=== PATIENT | female | born 1960 | race Caucasian/White ===

== ENCOUNTER → 2024-11-07 | Outpatient (CLI) | payer BC ==
--- NOTE | 2024-11-07 13:57 | MM ---
Reason for Exam: Additional evaluation requested from prior study. Last screening mammogram was performed less than 1 month ago. Patient History: Menarche at age 11. First Full-Term at age 19. Left ovary removed at age 31. Right ovary removed at age 31. Hysterectomy at age 31. Postmenopausal. Patient has history of breast feeding. 12/21/1988, Benign Excisional Biopsy on the left side. Risk Values: Sara 5 year model risk: 1.8%. NCI Lifetime model risk: 6.6%. Prior Study Comparison: 12/15/2018 Bilateral MG screening mammo w CAD - 2, Unknown. 12/01/2022 Bilateral MG screening mammo w CAD - 2, Unknown. 10/10/2024 Bilateral MG screening mammo w CAD - 2, Unknown. Tissue Density: Left: The breasts are heterogeneously dense, which may obscure small masses. Findings: Analyzed By CAD. Approximately 8 cm from the nipple upper outer quadrant left breast there is a faint indeterminate cluster of microcalcifications for which tissue diagnosis is recommended. No additional abnormal clusters seen at this time. Overall Assessment: Suspicious, BI-RAD 4 Management: Stereotactic Core Biopsy of the left breast. . Results were given to the patient verbally at the time of exam. Patient should continue monthly self-breast exams. A clinical breast exam by your physician is recommended on an annual basis. This exam should not preclude additional follow-up of suspicious palpable abnormalities. Note on Sara scores and lifetime risk: 1. A Sara score greater than 3% is considered moderate risk. If this is the case, consider specialist referral to assess eligibility for a risk reducing agent. 2. If overall lifetime risk for the development of breast cancer is 20% or higher, the patient may qualify for future screening with alternating mammogram and breast MRI. [facility], , 11/07/2024 1:54 PM. Electronically signed and approved by: Brien Edmond M.D. Radiologis
== END | disposition home or self-care (01) ==
LOC: RADMAMWWP 12:49
PROVIDERS: ATTEND Family Medicine
DX: R92.8 Other abnormal and inconclusive findings on diagnostic imaging of breast (principal); R92.333 Mammographic heterogeneous density, bilateral breasts; Z78.0 Asymptomatic menopausal state
CPT/HCPCS: 77061; 77065

== ENCOUNTER → 2024-11-20 | Day surgery (SDC) | payer BC ==
[~2024-11-20] MED LIST: ALPRAZolam 0.25 MG TAB PO PRN; ALPRAZolam 0.5 MG TAB PO PRN
[2024-11-20 07:42] VITALS: RESP 16
[2024-11-20 08:43] VITALS: BP 146/83; PULSE 74; TEMP 98.1
--- NOTE | 2024-11-24 12:25 | MM ---
Risk Values: Sara 5 year model risk: 1.8%. NCI Lifetime model risk: 6.6%. Prior Study Comparison: 12/01/2022 Bilateral MG screening mammo w CAD - 2, Unknown. 10/10/2024 Bilateral MG screening mammo w CAD - 2, Unknown. 11/07/2024 Left MG 3D diag mammo w/cad LT, [facility]. Pathology Description: Marker Left Behind. Specimen Radiograph. Calcium Found: Yes Approach: Lateral to Medial Needle Type: Eviva Cores: 7 Skin Nicks: 1 Gauge: 9 The procedure of stereotactic guided core biopsy was explained to the patient. Benefits, alternatives, and risks were discussed. An informed consent was then obtained. The shortness pathway for biopsy was chosen. Shortness pathway was lateral to medial approach. A vacuum assisted biopsy gun was used to obtain multiple core samples. The patient tolerated the procedure well without any immediate complication. The patient was kept in the radiology department for short stay after the procedure and then discharged home in stable condition. Targeted calcifications are identified in specimen mammogram. Patient was taken to a dedicated mammography suite for post procedure clip placement verification. Post biopsy mammogram shows the clip to appear in satisfactory position relative to the targeted area of concern on the preprocedure images. No residual calcifications are identified. Impression: SUCCESSFUL, UNCOMPLICATED STEREOTACTIC GUIDED CORE BIOPSY OF AREA OF CONCERN IN THE LEFT BREAST. PATHOLOGY STATUS: Results pending Intermediate index of suspicion noted at time of procedure. [facility], , 11/20/2024 8:58 AM. Pathology Results: Result: High risk, Flat epithelial atypia. Pathology and radiology were reviewed. Findings are concordant. LEFT BREAST, STEREOTACTIC NEEDLE CORE BIOPSY: Focal flat epithelial atypia (FEA) and atypical ductal hyperplasia (ADH) with calcifications in a background of fibrocystic changes. See note. Notes Smooth muscle myosin heavy chain (SMMHC) immunostain performed on block A1 and evaluated with an appropriate positive control highlights a myoepithelial layer surrounding ductal structures within the stroma. The results support the diagnosis of the specimen as benign, with focal FEA and ADH. Bundler material from this case was also reviewed by Dr. Dereje Payton, who agrees with the above diagnosis. Overall Assessment: High risk Management: Surgical Consultation of the left breast. Consider needle localization. Electronically signed and approved by: Ramon Alarcon M.D.
== END ==
LOC: RADMAMWWP 07:22
PROVIDERS: ATTEND Family Medicine
DX: N60.12 Diffuse cystic mastopathy of left breast (principal)
CPT/HCPCS: 88305; 88342; 19081; A4648; J2003

== ENCOUNTER → 2025-03-09 | Outpatient (CLI) | payer BC ==
[2025-03-09 10:06] VITALS: BP 185/80; PULSE 77; RESP 17; TEMP 97.9
--- NOTE | 2025-03-09 10:46 | P.GSCN ---
History of Present Illness Consult date: 03/09/25 Reason for Consult: Flat epithelial atypia/atypical ductal hyperplasia left breast Requesting physician: Marie Olvera History of present illness: Krysta is a 65-year-old female seen in consultation for Dr. Olvera regarding a stereotactic core biopsy of the left breast revealing flat epithelial atypia/atypical ductal hyperplasia. She underwent a bilateral mammogram in 10 11 24. This was personally reviewed and discussed with Dr. Macario from radiology. Right breast was BI-RADS 2 and left breast was BI-RADS 0. She underwent additional diagnostic mammogram of the left breast on 11 07 24. This revealed approximately 8 cm from the nipple faint indeterminant cluster of microcalcifications for which tissue diagnosis was recommended. This was considered BI-RADS 4. A stereotactic core biopsy of the area was performed on 11-20-2024. This revealed flat focal 8 epithelial atypia and atypical ductal hyperplasia. The postprocedure radiographs were reviewed with Dr. Macario and the clip was noted to be in the correct location. This was found on a routine mammogram. She has not noted any lumps masses or nodules of concern in either breast. She has not had any recent trauma or infection in the breast. She is not complaining of any nipple discharge or skin changes of the breast. She did have a left breast open biopsy in the remote past which was benign. Caffeine: 1 cup tea in am nicotine: none chocolate: occasional hormones: patient takes estrogen for 33 years; pill form Family History: none Hormonal History: menarche: 12 , breas fed: yes, age at first : 28 menopause: total hysterectomy at 31 for endometriosis no cancer Surgical History: TOAN, BSO carpel tunnel Medical History: HTN Social HIstory: nicotine: none alcohol: occasional drugs: none Review of Systems - Constitutional Denies fever, Denies weight loss - EENT Eyes: denies blurred vision Ears: deny: decreased hearing, tinnitus Ears, nose, mouth and throat: Denies dysphagia - Breasts bilateral: as per HPI - Cardiovascular Reports shortness of breath, Denies chest pain - Respiratory Denies cough, Denies 7 - Gastrointestinal Reports as per HPI - Genitourinary Genitourinary: Denies dysuria, Denies hematuria Menstruation: Reports post hysterectomy - Musculoskeletal Reports as per HPI - Integumentary Denies rash, Denies unusual bruising - Neurological Denies headaches, Denies syncope - Psychiatric Reports as per HPI, Reports anxiety - Endocrine Reports as per HPI - Hematologic/Lymphatic Denies easy bleeding, Denies easy bruising - Allergic/Immunologic Reports as per HPI Past Medical History Past Medical History: Hypertension History of Any Multi-Drug Resistant Organisms: None Reported Past Surgical History: Breast Surgery, Hysterectomy Additional Past Surgical History / Comment(s): LT BREAST BX Past Anesthesia/Blood Transfusion Reactions: Motion Sickness Past Psychological History: Anxiety Smoking Status: Never smoker Past Alcohol Use History: Occasional Past Drug Use History: None Reported - Past Family History Mother Family Medical History: No Reported History Medications and Allergies Home Medications Medication Instructions Recorded Confirmed Type Estradiol (Dose Unknown) 2 tab PO DAILY 03/17/16 03/09/25 History Citalopram Hydrobromide [CeleXA] 20 mg PO DAILY 11/08/24 03/09/25 History Metoprolol Succinate [Toprol XL] 100 mg PO DAILY 11/08/24 03/09/25 History Allergies Allergy/AdvReac Type Severity Reaction Status Date / Time No Known Allergies Allergy Verified 03/09/25 10:03 Surgical - Exam Vital Signs Temp Pulse Resp BP Pulse Ox 97.9 F 77 17 185/80 95 03/09/25 10:04 03/09/25 10:04 03/09/25 10:04 03/09/25 10:04 03/09/25 10:04 - General no distress - Eyes normal ocular movement - ENT no hearing loss - Neck trachea midline - Respiratory normal respiratory effort, clear to auscultation - Cardiovascular Rhythm: regular Heart Sounds: normal: S1, S2 - Abdomen Abdomen: soft, non tender, no guarding, no rigid, no rebound - Neurologic no disoriented, no combative - Musculoskeletal normal gait - Psychiatric oriented to time, oriented to person, oriented to place, speech is normal, memory intact Breast Exam: BRA: 38C inspection: Bilateral grade 2 ptosis Palpation: Right breast: Multi positional exam no dominant masses or nodules of concern Right axilla: No adenopathy of concern Left breast: Multi positional exam no dominant masses or nodules of concern, well-healed scars from prior open biopsy and stereotactic core biopsy Left axilla: No adenopathy of concern Results Bilateral mammogram, left breast diagnostic mammogram, left breast stereo biopsy postprocedure all reviewed personally and discussed with Dr. Macario from radiology Assessment and Plan Assessment: Impression: Left breast focal epithelial atypia and focal atypical ductal hyperplasia Clip is at the correct biopsy site Hypertension Patient presently on estrogen Plan: Discussed the effect of estrogen on the breast/recommend that this be stopped until open biopsy be performed Left breast needle localization excisional biopsy with possible oncoplastic tissue transfer Risk and benefits of the procedure discussed with the patient. Risk include but are not limited to bleeding, infection, reaction to the anesthetic. If the correct tissue acquisition is not obtained then further tissue acquisition may be necessary. The patient understands and wishes to proceed. CC: Dr. Olvera
== END ==
LOC: WWCWWP 09:53
PROVIDERS: ATTEND Surgery
DX: N60.92 Unspecified benign mammary dysplasia of left breast (principal); I10 Essential (primary) hypertension; Z79.818 Long term (current) use of other agents affecting estrogen receptors and estrogen levels